=== PATIENT | male | born 1980 | race Caucasian/White ===

== ENCOUNTER 2021-09-08 09:18 | Emergency (ER) | payer OTHER, SELFPAY ==
[2021-09-08 09:23] VITALS: BP 135/58; PULSE 66; RESP 14; TEMP 36.8; O2SAT 98
--- NOTE | 2021-09-08 09:30 | DI.RAD_ITS ---
Exam(s) XR KNEE RT 3V AP,LAT,RADHA EXAM: XR KNEE RT 3V AP,LAT,RADHA CLINICAL HISTORY: lateral knee pain, large effusion, ski injury. TECHNIQUE: 2D digital imaging was performed of the right knee. Three views obtained. AP, lateral, M erchant and PA tunnel views were obtained. COMPARISON: No exams were available for comparison FINDINGS: BONES: There is an acute minimally displaced fracture involving the lateral aspect of the proximal ti jacki. No bony destructive lesion is seen. JOINTS: The knee is normally aligned. Large joint effusion is present. SOFT TISSUE: Normal. IMPRESSION: 1. Avulsion fracture of the lateral aspect of the proximal tibia. 2. Large joint effusion. DATA REPOSITORY: RADIATION DOSE DELIVERED:
--- NOTE | 2021-09-08 10:32 | DI.VRAD_ITS ---
PROCEDURE INFORMATION: Exam: XR Right Knee Exam date and time: 09/08/2021 9:46 AM Age: 41 years old Clinical indication: Other: Lateral knee pain, large effusion, ski injury x3 days ago TECHNIQUE: Imaging protocol: XR Right knee. Views: 3 views. COMPARISON: No relevant prior studies available. FINDINGS: Bones/joints: Minimally displaced fracture along the lateral aspect proximal tibia, having appearance of avulsion fracture. Large joint effusion. Soft tissues: Normal. IMPRESSION: 1. Minimally displaced fracture along the lateral aspect proximal tibia, having appearance of avulsion fracture. 2. Large joint effusion. Dictated and Authenticated by: Maddi Borden MD. Ordering:OLIVIER Rucker MD
--- NOTE | 2021-09-08 11:01 | ED.GENADUL_ITS ---
Discharge Plan Disposition Patient Disposition: HOME Condition: Good Discharge Details Clinical Impression: Avulsion injury of knee region, Internal derangement of knee, Effusion of knee Primary Care Provider: Unknown,Unknown ED Provider: Alka Beckett Home Meds and New Rx's Prescriptions: New oxycodone 5 mg capsule 5 mg PO BID PRNQty: 6 0RF Continued ibuprofen 200 mg Tablet 200 mg PO Q6H PRN0RF Discharge Instructions Instructions: Swollen Knee Joint (ED) Additional Instructions: It's important that you see an orthopedist within the next several days, please call to establish care on Friday when you arrive home We have provided you with a CD of your x-ray performed in the emergency department Please take ibuprofen 600 mg every 8 hours with food as needed for pain Please take Tylenol 650 mg every 4-6 hours as needed for discomfort, do not take more than 4 g of Tylenol in 1 day Apply ice, elevate as much as possible Keep your knee immobilizer in place and ambulate with your crutches Refrain from weightbearing as much as possible Please be reassessed should you have change or discoloration in your skin color, dramatic worsening of pain, or should any new or worsening complaints Referrals: Kiel Franklin MD [ [facility] STAFF PHYSICIAN] - Discharge Data Discharge Date/Time-TO BE ENTERED AT DEPARTURE: 09/08/21 11:21 Medical Decision Making Patient placed in knee immobilizer, patient has been on crutches Given prescription for oxycodone should he need it at home Risk of addiction discussed Remains neurovascularly intact throughout the visit Patient given copy of CD of x-ray imaging Aware of need for urgent outpatient follow-up, he will call his orthopedist on Friday Return precautions discussed and patient expressed understanding HPI General Date/Time Provider Initiated Documentation: 09/08/21 09:34 . HPI Narrative: This 41-year-old gentleman presents with knee injury yesterday. Was reportedly skiing, went over a jump, and landed, felt his right knee displaced slightly laterally when he landed. Denies any sensation change distally. States the pain is significant unable to ambulate without discomfort. But his knee feels unsteady. Denies any calf pain or swelling. Denies any head injury or loss of function. Related Data Home Medications Medication Instructions Recorded Confirmed ibuprofen 200 mg tablet 200 mg PO Q6H PRN 09/08/21 09/08/21 oxycodone 5 mg capsule 5 mg PO BID PRN #6 cap 09/08/21 Previous Rx's Medication Instructions Recorded oxycodone 5 mg capsule 5 mg PO BID PRN #6 cap 09/08/21 Allergies Allergy/AdvReac Type Severity Reaction Status Date / Time No Known Allergies Allergy Unverified 09/08/21 09:29 General Stated Complaint: Orthopedic ALIX: 4 Review of Systems All systems reviewed & are unremarkable except as noted in HPI and below PFSH All Active Problems (Updated 09/08/21 @ 10:43 by HAMMAD Bedoya) Avulsion injury of knee region (Acute) Internal derangement of knee (Acute) Effusion of knee (Acute) Social History Smoking/Tobacco Use Status: Never Smoking risk assessment performed?: Yes Alcohol Intake: current Alcohol Intake frequency: a few times a week Alcohol type: beer Drug use: Daily Substance use type: marijuana Do you feel safe at home: Yes Do you feel safe in your relationship?: Yes Exam Const General: cooperative, comfortable and no acute distress HENMT Head: normal to inspection Neuro General: patient alert and patient oriented x3 Extrem Other: Right large knee effusion, no erythema, tenderness laterally, LCL laxity, neurovascularly intact, no tenderness to right hip or right ankle Course Vital Signs Vital signs: Vital Signs Temperature 36.8 C 09/08/21 09:23 Pulse 66 09/08/21 09:23 Respiratory Rate 14 09/08/21 09:23 Blood Pressure 135/58 L 09/08/21 09:23 Pulse Oximetry 98 09/08/21 09:23 Temperature 36.8 C 09/08/21 09:23 Temperature Source Temporal Artery Scan 09/08/21 09:23 Pulse 66 09/08/21 09:23 Respiratory Rate 14 09/08/21 09:23 Respiratory Effort Non-Labored 09/08/21 09:27 Blood Pressure 135/58 L 09/08/21 09:23 Blood Pressure Position Sitting 09/08/21 09:23 Pulse Oximetry 98 09/08/21 09:23 Oxygen Delivery Method Room Air 09/08/21 09:23 Oxygen Flow Rate 0 09/08/21 09:23 Pain Level 6 09/08/21 09:36 PAWSS Have you Been Recently Intoxicated or Drunk Within the Last 30 days?: No Have you Ever Experienced Previous Episodes of Alcohol Withdrawal?: No Have you ever Experienced Withdrawal Seizures?: No Have you ever Experienced Delirium Tremens(DT)s?: No Have you ever undergone Alcohol Rehabilitation Treatment (i.e, inpt ot outpatient treatment programs)?: No Have you ever Experienced Blackouts?: No Have you ever Combined Alcohol with other Downers within the last 90 days?: No Have you ever Combined Alcohol with any other Substance of Abuse during the last 90 days?: No Positive Blood Alcohol level on Presentation? [PCS.BAL]: No Evidence of Increased Autonomic Activity (i.e. HR>120, tremor, sweating, agitation, nausea)?: No Result: 0
[2021-09-08] MEDS: Ibuprofen 600 MG TAB PO (11:13)
[2021-09-08] MEDS: oxyCODONE 5 mg/Acetaminophen 325 mg TAB 1 TAB PO (11:13)
== END 2021-09-08 11:21 | disposition home or self-care (01) ==
PROVIDERS: Emergency Provider Physician Assistant
DX: S89.81XA Other specified injuries of right lower leg, initial encounter (principal); M23.8X1 Other internal derangements of right knee; M25.461 Effusion, right knee; V00.321A Fall from snow-skis, initial encounter
CPT/HCPCS: 29505; 73562; 99283

== ENCOUNTER 2023-07-08 18:42 | Outpatient (REF) | payer OTHER, SELFPAY ==
[2023-07-08 21:50] LABS: MRSA PCR Negative (Negative)
== END 2023-07-08 18:43 | disposition home or self-care (01) ==
LOC: NCHCN 18:42
PROVIDERS: Visit Provider Physician Assistant
DX: J34.89 Other specified disorders of nose and nasal sinuses (principal); Z11.2 Encounter for screening for other bacterial diseases
CPT/HCPCS: 87641